=== PATIENT | male | born 2000 | race African-American/Black ===

== ENCOUNTER 2025-10-15 22:06 | Emergency (ER) | payer MEDICAID, OTHER ==
[~2025-10-15] VITALS: Ht 170.2 cm; Wt 72.6 kg
[2025-10-15 22:39] VITALS: BP 127/79; TEMP 98.1; O2SAT 98
[2025-10-15] MEDS ORDERED: dexaMETHasone SOD PHOSPHATE 1 ML ONE (22:48)
[2025-10-15] MEDS ORDERED: ONDANSETRON 4 MG TAB.RAPDIS ONE (22:49)
[2025-10-15] MEDS ORDERED: ONDA4TAB11 PO (22:54)
[2025-10-15] MEDS: dexaMETHasone SOD PHOSPHATE 10 MG/ML VIAL MC ONE (23:00)
[2025-10-15] MEDS: ONDANSETRON 4 MG TAB.RAPDIS SL ONE (23:00)
[2025-10-15] MEDS ORDERED: ONDANSETRON HCL/PF 4 MG/2 ML VIAL ONE (23:05)
[2025-10-15] MEDS: ONDANSETRON HCL/PF - ER 4 MG/2 ML VIAL IM ONE (23:26)
== END 2025-10-15 23:27 | disposition home or self-care (01) ==
LOC: ER 22:19
DX: B34.9 Viral infection, unspecified (principal); R11.2 Nausea with vomiting, unspecified; R19.7 Diarrhea, unspecified; J02.9 Acute pharyngitis, unspecified
CPT/HCPCS: 99283; 96372; 87070; 87880; J1100; J2405 ×2; Q0162; 86403-TC